=== PATIENT | female | born 1955 | race Caucasian/White ===

== ENCOUNTER 2019-01-23 12:53 | Emergency (ER) | payer BC ==
[~2019-01-23] VITALS: Wt 44.0 kg
[2019-01-23 12:57] VITALS: BP 140/71; PULSE 81; RESP 18
[2019-01-23] MEDS ORDERED: MICO100S4 VG (14:07)
--- NOTE | 2019-01-23 14:31 | ERD ---
ER Documentation Chief Complaint Chief Complaint DYSURIA AND LOWER BACK PAIN FOR THE PAST FEW WKS. NO RELEIF WITH ABX HPI 63-year-old female presenting with dysuria and lower back pain for the last few weeks. Patient states she is taking Keflex but she still had continued pressure and discomfort. Denies discharge. Patient is diabetic [id number]. Hypertension. Hypercholesterolemia. NKDA. Surgical history denies. Social history denies. ROS All systems reviewed and are negative except as per history of present illness. Medications Home Meds Active Scripts Miconazole Nitrate (Miconazole 7) 100 Mg Supp.vag, 100 MG VG QHS, #7 SUPP.VAG Prov:KINGA SANTOYO PA-C 01/23/19 Allergies Allergies: Coded Allergies: iodine (Verified Allergy, Unknown, 01/23/19) PMhx/Soc History of Surgery: Yes (APPENDECTOMY,HYSTERECTOMY,RIGHT WRIST,R 4TH FINGER) Anesthesia Reaction: No Hx Neurological Disorder: No Hx Respiratory Disorders: No Hx Cardiac Disorders: Yes (HTN,HLD) Hx Psychiatric Problems: No Hx Miscellaneous Medical Probl: No Hx Alcohol Use: No Hx Substance Use: No Hx Tobacco Use: No Smoking Status: Current every day smoker FmHx Family History: No diabetes, No coronary disease, No other Physical Exam Vitals Vital Signs Date Temp Pulse Resp B/P (MAP) Pulse Ox O2 O2 Flow FiO2 Time Delivery Rate 01/23/19 98.6 81 18 140/71 98 12:57 (94) Physical Exam GENERAL: The patient is well-appearing, well-nourished, in no acute distress HEENT: Atraumatic. Conjunctivae are pink. Pupils equal, round, and reactive to light. There is no scleral icterus. Tympanic membranes clear bilaterally. Oropharynx clear. NECK: C-spine is soft and supple. There is no meningismus. There is no cervical lymphadenopathy. CHEST: Clear to auscultation bilaterally. There are no rales, wheezes or rhonchi. HEART: Regular rate and rhythm. No murmurs, clicks, rubs or gallops. No S3 or S4. ABDOMEN:Soft, nontender and nondistended. Good bowel sounds. No rebound or guarding. No gross peritonitis. No gross organomegaly or masses. Results 24 hrs Laboratory Tests Test 01/23/19 13:38 Bedside Urine pH (LAB) 6.0 Bedside Urine Protein (LAB) Negative Bedside Urine Glucose (UA) Negative Bedside Urine Ketones (LAB) Negative Bedside Urine Blood 1+ Bedside Urine Nitrite (LAB) Negative Bedside Urine Leukocyte Esterase (L Negative Procedures/MDM ER course: Urinalysis negative. Exam is non-concerning. Urine sent for culture. MDM: 63-year-old female presenting with dysuria. Patient's urine findings are negative so I will not change antibiotics at this time. I will send patient dorene e with antifungals given she is diabetic on antibiotics currently. Patient's urine is sent for culture. If urine shows signs of resistance to this Keflex with infection she will need new antibiotics called for her. I have low suspicion for acute abdominal emergency. I have low suspicion for pelvic abnormality. Patient is discharged with strict ER precautions. All questions answered at discharge Departure Diagnosis: Primary Impression: Vaginitis Additional Impression: Dysuria Condition: Stable Patient Instructions: Dysuria, Vaginitis (Child) Referrals: [facility] YOU HAVE RECEIVED A MEDICAL SCREENING EXAM AND THE RESULTS INDICATE THAT YOU DO NOT HAVE A CONDITION THAT REQUIRES URGENT TREATMENT IN THE EMERGENCY DEPARTMENT. FURTHER EVALUATION AND TREATMENT OF YOUR CONDITION CAN WAIT UNTIL YOU ARE SEEN IN YOUR DOCTORS OFFICE WITHIN THE NEXT 1-2 DAYS. IT IS YOUR RESPONSIBILITY TO MAKE AN APPOINTMENT FOR FOLOW-UP CARE. IF YOU HAVE A PRIMARY DOCTOR --you should call your primary doctor and schedule an appointment IF YOU DO NOT HAVE A PRIMARY DOCTOR YOU CAN CALL OUR PHYSICIAN REFERRAL HOTLINE AT IF YOU CAN NOT AFFORD TO SEE A PHYSICIAN YOU CAN CHOSE FROM THE FOLLOWING [facility] [address] [facility]. [facility] [email or web address] [facility] [address] [facility]. [facility] [address] [facility]. [facility] [address] [facility]. [facility]. [address] Additional Instructions: FOLLOW UP WITH YOUR PRIMARY CARE PHYSICIAN TOMORROW.Return to this facility if you are not improving as expected. KINGA SANTOYO PA-C January 23, 2019 14:31
== END 2019-01-23 15:04 | disposition home or self-care (01) ==
LOC: FTE 12:53
DX: N76.0 Acute vaginitis (principal); I10 Essential (primary) hypertension; E11.9 Type 2 diabetes mellitus without complications; F17.210 Nicotine dependence, cigarettes, uncomplicated
CPT/HCPCS: 81003; 87086; 99283